=== PATIENT | female | born 1980 | race Caucasian/White ===

== ENCOUNTER 2020-08-14 17:16 | Outpatient (REF) | payer OTHER, SELFPAY ==
[2020-08-14 18:12] LABS: Influenza A PCR NEGATIVE (Negative); Influenza B PCR NEGATIVE (Negative); Resp Syncy Virus RNA Qual PCR NEGATIVE (Negative); SARS COV2 PCR INHOUSE NEGATIVE (Negative)
== END 2020-08-14 17:17 | disposition home or self-care (01) ==
LOC: HO.LNP 17:16
PROVIDERS: Visit Provider Internal Medicine
DX: R50.9 Fever, unspecified (principal); I10 Essential (primary) hypertension
CPT/HCPCS: 0241U

== ENCOUNTER 2020-12-14 07:04 | Outpatient (REF) | payer OTHER, SELFPAY ==
[2020-12-14 08:03] LABS: MANUAL DIFF FLAG NO
[2020-12-14 08:23] LABS: Eosinophils Absolute Auto 0.1 X10*3/uL (0.0-0.4); Eosinophils Percent Auto 2.3 % (0-4); Hematocrit 37.5 % (37-47); Hemoglobin 12.2 g/dl (12.0-16.0); Imm Gran Abs Auto 0.01 X10*3/uL (0.00-0.03); Imm Gran Pct Auto 0.3 % (0.0-0.4); Lymphocytes Absolute Auto 1.4 X10*3/uL (1.2-4.9); Lymphocytes Percent Auto 36.1 % (20-40); Mean Corpuscular HGB Conc 32.5 g/dl (31.0-35.0); Mean Corpuscular Hemoglobin 29.7 pg (27.0-33.0); Mean Corpuscular Volume 91.2 fL (80-98); Mean Platelet Volume 9.5 fL (9.4-12.3); Monocytes Absolute Auto 0.3 X10*3/uL (0.1-1.2); Monocytes Percent Auto 7.6 % (2-11); Neutrophils Absolute Auto 2.1 X10*3/uL (2.0-8.3); Neutrophils Percent Auto 52.7 % (45-73); Platelet Count 228 X10*3/uL (160-400); Red Blood Count 4.11 X10*6/uL (4.20-5.50); Red Cell Distribution Width 11.6 % (11.0-16.0); White Blood Count 3.9 X10*3/uL (4.8-10.8)
[2020-12-14 08:30] LABS: Alanine Aminotransferase 16 U/L (0-31); Albumin Level 4.2 g/dL (3.5-5.0); Alkaline Phosphatase 30 U/L (39-117); Anion Gap 14 (12-20); Aspartate Amino Transferase 17 U/L (5-31); Bilirubin Total 0.9 mg/dL (0.0-1.0); Blood Urea Nitrogen 11 mg/dL (9-16); Calcium 9.2 mg/dL (8.4-10.2); Carbon Dioxide 24 mmol/L (22-29); Chloride 107 mmol/L (96-108); Cholesterol 138 mg/dL; Estimated Glomerular Filt Rate > 60; Glucose Fasting 91 mg/dL (60-99); HDL Cholesterol 54 mg/dL; LDL Cholesterol Calculated 74 mg/dl; Potassium 4.5 mmol/L (3.3-5.1); Sodium 140 mmol/L (135-145); Total Protein 6.4 g/dL (6.5-8.0); Triglycerides 52 mg/dL
[2020-12-14 08:53] LABS: Free T4 (Free Thyroxine) 1.14 ng/dL (0.71-1.85); Thyroid Stimulating Hormone 0.59 uIU/mL (0.32-4.0)
== END 2020-12-14 07:05 | disposition home or self-care (01) ==
LOC: HO.LAB 07:04
PROVIDERS: PCP Internal Medicine; Visit Provider Internal Medicine
DX: Z00.00 Encounter for general adult medical examination without abnormal findings (principal); R00.2 Palpitations
CPT/HCPCS: 36415; 80053; 80061; 84439; 84443; 85025

== ENCOUNTER 2021-04-18 08:06 | Emergency (ER) | payer OTHER, SELFPAY ==
--- NOTE | 2021-04-18 08:50 | ED.ANIMALBIT ---
HPI - Animal Bite General Chief Complaint: Animal Bite Stated Complaint: at exposure Time Seen by Provider: 04/18/21 08:50 Source: patient Mode of arrival: ambulatory Limitations: no limitations History of Present Illness MD complaint: possible animal exposure Onset (ago): day(s) (2 ) Animal: bat Description of animal: wild animal Mechanism: animal present during sleep Context: unprovoked Associated symptoms: none Related Data Allergies Allergy/AdvReac Type Severity Reaction Status Date / Time lactose [LACTOSE] Allergy Unknown GAS Unverified 05/10/20 15:33 Review of Systems Review of Systems: Constitutional : No Fever, No Chills, Cardiovascular : No Chest Pain, No SOB Respiratory : No Dyspnea Gastrointestinal : No abdominal pain Musculoskeletal : No Joint Swelling Skin : No rash, no skin laceration Neuro : No Weakness, No Numbness PMFSH Past Medical History Attestation statement: The following information was validated with the patient. Medical History deliv due to previous difficult deliv, deliv, curr hospitaliz No known health problems Surgical History (Updated 04/18/21 @ 08:17 by Gwyn Perla) Previous section Social History Social History (Updated 04/18/21 @ 09:04 by Autumn Phillips DO) Patient Tobacco Use Status: Current everyday Tobacco user Patient : No Physical Exam Vital Signs: Vital Signs: Last Vital Signs Resp 18 04/18/21 09:00 Pulse Ox 99 04/18/21 09:00 Body Mass Index 24.5 Appearance: Alert. Oriented X3. No acute distress. Eyes: Pupils equal, round and reactive to light. Neck: Normal inspection. Neck supple. CVS: Pulses normal. Respiratory: No respiratory distress. Skin: Skin warm and dry. Normal skin color. Extremities: No lower extremity edema. Neuro: Oriented X 3. No motor deficit. No sensory deficit. MDM - Animal Bite MDM Narrative Medical decision making narrative: possible bat exposure 30 hours ago here for rabies vaccines Discharge Plan Discharge Clinical Impression: Rabies contact Patient Disposition: Home, Self-Care Instructions: Rabies (ED), Rabies Immune Globulin (By injection), Rabies Vaccine (By injection) Additional Instructions: rabies shots on day 0, 3, 7, 14
[2021-04-18 09:00] VITALS: RESP 18; O2SAT 99; BMI 24.5
[2021-04-18 09:10] VITALS: BP 118/70; PULSE 67; RESP 14; TEMP 36.9; O2SAT 98
[2021-04-18] MEDS: Rabies Vaccine (PCEC)/PF 1 ML VIAL IM (09:42)
[2021-04-18] MEDS: Rabies Immune Globulin/PF 300 UNIT/ML VIAL 1294 UNIT IM (09:44)
== END 2021-04-18 10:56 | disposition home or self-care (01) ==
PROVIDERS: Emergency Provider Emergency Medicine; PCP Internal Medicine
DX: Z20.3 Contact with and (suspected) exposure to rabies (principal); F17.210 Nicotine dependence, cigarettes, uncomplicated
CPT/HCPCS: 90375; 90471; 90675; 96372; 99283; 99284

== ENCOUNTER 2021-04-21 10:58 | Outpatient (REF) | payer OTHER, SELFPAY | END 2021-04-21 10:59 | disposition home or self-care (01) | LOC: HO.MDS 10:58 | PROVIDERS: PCP Internal Medicine; Visit Provider Emergency Medicine | DX: Z29.14 Encounter for prophylactic rabies immune globulin (principal); Z20.3 Contact with and (suspected) exposure to rabies | CPT/HCPCS: 90471; 90675 ==

== ENCOUNTER 2021-04-25 14:04 | Outpatient (REF) | payer OTHER, SELFPAY | END 2021-04-25 14:05 | disposition home or self-care (01) | LOC: HO.MDS 14:04 | PROVIDERS: Visit Provider Emergency Medicine | DX: Z29.14 Encounter for prophylactic rabies immune globulin (principal); Z20.3 Contact with and (suspected) exposure to rabies | CPT/HCPCS: 90471; 90675 ==

== ENCOUNTER 2021-05-02 14:05 | Outpatient (REF) | payer OTHER, SELFPAY | END 2021-05-02 14:06 | disposition home or self-care (01) | LOC: HO.MDS 14:05 | PROVIDERS: Visit Provider Emergency Medicine | DX: Z29.14 Encounter for prophylactic rabies immune globulin (principal); Z20.3 Contact with and (suspected) exposure to rabies | CPT/HCPCS: 90471; 90675 ==

== ENCOUNTER 2021-07-17 10:35 | Outpatient (REF) | payer OTHER, SELFPAY ==
[2021-07-17 13:43] LABS: MANUAL DIFF FLAG NO
[2021-07-17 13:55] LABS: Basophils Percent Auto 0.7 % (0-2); Hematocrit 36.7 % (37.0-47.0); Hemoglobin 12.3 g/dl (12.0-16.0); Imm Gran Abs Auto 0.01 X10*3/uL (0.00-0.03); Imm Gran Pct Auto 0.2 % (0.0-0.4); Lymphocytes Absolute Auto 1.4 X10*3/uL (1.2-4.9); Lymphocytes Percent Auto 33.3 % (20-40); Mean Corpuscular HGB Conc 33.5 g/dl (31.0-35.0); Mean Corpuscular Hemoglobin 29.8 pg (27.0-33.0); Mean Corpuscular Volume 88.9 fL (80.0-98.0); Mean Platelet Volume 9.9 fL (9.4-12.3); Monocytes Absolute Auto 0.3 X10*3/uL (0.1-1.2); Monocytes Percent Auto 6.7 % (2-11); Neutrophils Absolute Auto 2.5 x10*3/uL (2.0-8.3); Neutrophils Percent Auto 58.1 % (45-73); Platelet Count 205 X10*3/uL (160-400); Red Blood Count 4.13 X10*6/uL (4.20-5.50); Red Cell Distribution Width 11.6 % (11.0-16.0); White Blood Count 4.2 X10*3/uL (4.8-10.8)
[2021-07-17 14:33] LABS: Anion Gap 11 (12-20); Blood Urea Nitrogen 8 mg/dL (9-16); C Reactive Protein 0.04 mg/dL (< or = 0.50); Calcium 8.9 mg/dL (8.4-10.2); Carbon Dioxide 24 mmol/L (22-29); Chloride 110 mmol/L (96-108); Estimated Glomerular Filt Rate > 60; Glucose Random 73 mg/dL (60-115); Magnesium 2.3 mg/dL (1.6-2.6); Potassium 4.2 mmol/L (3.3-5.1); Sodium 141 mmol/L (135-145)
[2021-07-17 15:05] LABS: Thyroid Stimulating Hormone 0.78 uIU/mL (0.32-4.0); Vitamin D 25-OH Total 31.8 ng/mL (>30)
[2021-07-17 16:02] LABS: Vitamin B12 223 pg/mL (200-900)
== END 2021-07-17 10:36 | disposition home or self-care (01) ==
LOC: HO.10HDL 10:35
PROVIDERS: Visit Provider Internal Medicine
DX: R51.9 Headache, unspecified (principal); M62.40 Contracture of muscle, unspecified site
CPT/HCPCS: 36415; 80048; 82306; 82607; 83735; 84443; 85025; 86140

== ENCOUNTER 2021-08-19 11:54 | Outpatient (REF) | payer OTHER, SELFPAY ==
[2021-08-19 14:19] LABS: Influenza A PCR NEGATIVE (Negative); Influenza B PCR NEGATIVE (Negative); Resp Syncy Virus RNA Qual PCR NEGATIVE (Negative); SARS COV2 PCR INHOUSE NEGATIVE (Negative)
== END 2021-08-19 11:55 | disposition home or self-care (01) ==
LOC: HO.10HDLNP 11:54
PROVIDERS: Visit Provider Internal Medicine
DX: Z20.822 Contact with and (suspected) exposure to COVID-19 (principal)
CPT/HCPCS: 0241U

== ENCOUNTER 2023-01-23 08:03 | Outpatient (REF) | payer OTHER, SELFPAY ==
[2023-01-23 10:49] LABS: MANUAL DIFF FLAG NO
[2023-01-23 11:00] LABS: Basophils Percent Auto 0.7 % (0-2); Eosinophils Absolute Auto 0.1 X10*3/uL (0.0-0.4); Eosinophils Percent Auto 1.5 % (0-4); Hematocrit 35.5 % (37.0-47.0); Hemoglobin 11.6 g/dl (12.0-16.0); Imm Gran Abs Auto 0.01 X10*3/uL (0.00-0.03); Imm Gran Pct Auto 0.2 % (0.0-0.4); Lymphocytes Absolute Auto 1.4 X10*3/uL (1.2-4.9); Lymphocytes Percent Auto 30.6 % (20-40); Mean Corpuscular HGB Conc 32.7 g/dl (31.0-35.0); Mean Corpuscular Hemoglobin 27.5 pg (27.0-33.0); Mean Corpuscular Volume 84.1 fL (80.0-98.0); Mean Platelet Volume 10.2 fL (9.4-12.3); Monocytes Absolute Auto 0.3 X10*3/uL (0.1-1.2); Neutrophils Absolute Auto 2.8 x10*3/uL (2.0-8.3); Platelet Count 192 X10*3/uL (160-400); Red Blood Count 4.22 X10*6/uL (4.20-5.50); Red Cell Distribution Width 13.2 % (11.0-16.0); White Blood Count 4.6 X10*3/uL (4.8-10.8)
[2023-01-23 11:20] LABS: Anion Gap 10 (12-20); Blood Urea Nitrogen 12 mg/dL (9-16); C Reactive Protein < 0.10 mg/dL (< or = 0.50); Calcium 9.6 mg/dL (8.4-10.2); Carbon Dioxide 25 mmol/L (22-29); Chloride 108 mmol/L (96-108); Estimated Glomerular Filt Rate > 60; Glucose Random 87 mg/dL (60-115); Potassium 3.9 mmol/L (3.3-5.1); Sodium 139 mmol/L (135-145)
[2023-01-23 11:40] LABS: Erythrocyte Sedimentation Rate 7 MM/HR (0-20)
[2023-01-23 11:42] LABS: Vitamin B12 275 pg/mL (200-900)
== END 2023-01-23 08:04 | disposition home or self-care (01) ==
LOC: HO.10HDL 08:03
PROVIDERS: Visit Provider Internal Medicine
DX: G43.909 Migraine, unspecified, not intractable, without status migrainosus (principal); J30.1 Allergic rhinitis due to pollen; E53.8 Deficiency of other specified B group vitamins
CPT/HCPCS: 36415; 80048; 82607; 85025; 85652; 86140

== ENCOUNTER 2023-02-19 19:24 | Emergency (ER) | payer OTHER, SELFPAY ==
--- NOTE | ~2023-02-19 | CT_ITS ---
EXAMINATION: CT MAXILLOFACIAL WITHOUT CONTRAST CLINICAL INFORMATION: Facial pain. Dental pain. Sinusitis. COMPARISON: CT head from 06/26/2016. TECHNIQUE: Multidetector helical imaging of the maxillofacial bones was performed in the axial plane without intravenous contrast. Generation of coronal and sagittal reformatted images. This CT examination was performed using dose optimization techniques as appropriate, variously including the following: *Automated exposure control *Adjustment of mA and/or kV according to patient size (this includes techniques or standardized protocols for targeted exams where dose is matched to indication/reason for exam; i.e. extremities or head) *Use of iterative reconstruction technique DLP: 208 mGy-cm FINDINGS: FRONTAL SINUSES AND DRAINAGE PATHWAYS: Minimal mucosal thickening of the frontal sinuses. The frontoethmoidal recesses are patent. MAXILLARY SINUSES AND DRAINAGE PATHWAYS: Minimal mucosal thickening of the maxillary sinuses. The maxillary ostia and infundibula are patent. ETHMOID SINUSES: Mild mucosal thickening of the ethmoid air cells. The ethmoid roofs appear symmetric and intact. SPHENOID SINUS AND DRAINAGE PATHWAYS: The sphenoid sinus is clear. The sphenoethmoidal recesses are patent. The carotid canals are normally covered by bone. NASAL PASSAGE: Moderate mucosal thickening of the nasal passages. Moderate leftward nasal septal deviation. ORBITS: Normal appearance of the osseous orbits. The lamina papyracea are intact. No significant preseptal or retrobulbar edema. Normal appearance of the globes. Normal symmetric appearance of the extraocular musculature. No abnormalities of the intraconal or extraconal adipose tissue. Normal appearance of the optic nerve sheaths. Normal appearance of the lacrimal glands. No orbital fluid collections. No abnormalities of the orbital apices. TEMPOROMANDIBULAR JOINTS: The temporomandibular joints remain well aligned. Mild degenerative arthropathy of the temporomandibular joints. ADDITIONAL RELEVANT FINDINGS: No evidence of maxillofacial bone fractures. The zygomatic arches remain intact. No nasal bone fracture. No evidence of mandibular or maxillary fracture. No significant maxillary/mandibular periapical disease. The visualized mastoid air cells and middle ear cavities remain well aerated. Limited evaluation of the intracranial structures without significant abnormalities. The premaxillary, retromaxillary, pterygopalatine fossa, temporal fossa, and parapharyngeal adipose tissue is maintained. No demonstrated soft tissue abnormalities within the intrinsic tissues of the tongue. CT/CT facial bones wo IV con IMPRESSION: 1. No evidence of acute fracture of the maxillofacial bones. 2. Mild sinonasal mucosal disease. Moderate leftward nasal septal deviation. 3. Mild degenerative arthropathy of the temporomandibular joints. 4. No demonstrated periodontogenic collection.
--- NOTE | ~2023-02-19 | XR_ITS ---
EXAMINATION: XR CHEST CLINICAL INFORMATION: Chest pain. COMPARISON: None available. TECHNIQUE: Frontal view of the chest was obtained. FINDINGS: No significant abnormality is noted involving the heart, lungs, mediastinum, bony thorax or soft tissues. XR/XR chest 1V IMPRESSION: Unremarkable examination.
--- NOTE | 2023-02-19 19:29 | ECG_ITS ---
Test Reason : CHEST PAIN Blood Pressure : / mmHG Vent. Rate : 059 BPM Atrial Rate : 059 BPM P-R Int : 160 ms QRS Dur : 074 ms QT Int : 436 ms P-R-T Axes : 037 079 046 degrees QTc Int : 431 ms Sinus bradycardia Otherwise normal ECG No previous ECGs available Referred By: Anastacio Chaves Electronically Signed By:Bobby Shrestha
[2023-02-19 19:31] VITALS: BP 132/91; PULSE 72; RESP 16; TEMP 36; O2SAT 100; BMI 24.9
--- NOTE | 2023-02-19 19:32 | ED_ITS ---
HPI - General Adult General Chief complaint: Chest Pain Stated complaint: headache,pain radiation from chest to back Time Seen by Provider: 02/19/23 19:58 Source: patient Mode of arrival: ambulatory Limitations: no limitations History of Present Illness HPI narrative: Patient history of migraine headache almost every day today she woke up had more headache more on the left side with slight nausea and slight light sensitivity. No fever no neck pain also last few hours patient noticed some sharp pain on the right side of the chest increases on deep respiration no shortness of breath no leg swelling no history or risk for DVT, no fever no chills patient does complain of facial pain and forehead pain which increases on stooping down slight nasal discharge Related Data Previous Rx's Medication Instructions Recorded [id number]-[id number] 1 cap PO Q6H PRN headache #20 caps 02/19/23 50 mg-300 mg-40 mg capsule (Fioricet) sumatriptan succinate 50 mg tablet 50 mg PO Q2H PRN migraine headache 02/19/23 (Imitrex) #10 tabs Allergies Allergy/AdvReac Type Severity Reaction Status Date / Time lactose [LACTOSE] Allergy Unknown GAS Verified 02/19/23 19:35 Review of Systems Review of Systems: Yes all other systems are reviewed and are negative COUNT INCLUDES THE [facility] Past Medical History Medical History (Updated 02/19/23 @ 22:24 by George Nobles MD) deliv due to previous difficult deliv, deliv, curr hospitaliz Migraine headache Surgical History Previous section Social History Social History Patient Tobacco Use Status: Current everyday Tobacco user Smoked in Last 30 Days: No Use of substances other than those prescribed or required for medical reasons: No Advance Directives: No Advance Directives Information Provided: Yes Patient : No Physical Exam ED Vital Signs: Vital Signs - 24 hr 02/19/23 19:31 02/19/23 20:28 02/19/23 21:48 Temperature 96.8 F 98.1 F Pulse Rate 72 60 54 Respiratory Rate 16 12 15 Blood Pressure 132/91 H 107/65 119/68 Pulse Oximetry 100 99 98 Oxygen Delivery Method Room Air Room Air Room Air BMI result Body Mass Index 24.9 Appearance: Alert. Oriented X3. No acute distress. Eyes: PERRLA, No Nystagmus normal fundus no papilledema ENT: Pharynx normal. Oral Mucosa moist no temporal artery tenderness, facial tenderness over the frontal and maxillary sinus nares are clear no dental pain Neck: Normal inspection. Neck supple. CVS: Normal heart rate and rhythm. Pulses normal. Respiratory: No respiratory distress. Equal air entry bilateral, no wheezi ng/rales/rhonchi Abdomen: Soft and nontender. Bowel sounds are present, no mass palpable, no CVA tenderness Skin: Skin warm and dry. Normal skin color. Normal skin turgor. Extremities: No lower extremity edema. No calf tenderness Neuro: Oriented X 3. No motor deficit. No sensory deficit.No cerebellar signs , cranial nerves II-XII intact Course Course Course Narrative: This is an RME: Additional HPI, ROS, PE not included below will be deferred to primary provider. 42 year old female presents w/ R sided cp that radiates to back worse w/ deep breathing, feels it around her ribs. Also awoke with severe headache w/ vision changes feels like typical, followed by neuro April 02 scheduled to see them. Denies SOB, recent travel, sedentary lifestyle, smoking hx, OCPs, hypercoagulable do. Plan- labs, ekg, trop Medications Administered Discontinued Medications Generic Name Dose Route Start Last Admin Trade Name Freq PRN Reason Stop Dose Admin Sodium Chloride 1,000 mls @ 999 mls/hr 02/19/23 20:10 02/19/23 21:50 Ns IV 02/19/23 21:10 Infused .Q1H1M ONE Infusion Ketorolac Tromethamine 30 mg 02/19/23 21:17 02/19/23 21:23 Ketorolac Tromethamine 30 Mg/Ml Vial IVPUSH 02/19/23 21:18 30 mg ONCE ONE Administration Ondansetron HCl 4 mg 02/19/23 20:10 02/19/23 20:17 Ondansetron Hcl 4 Mg/2 Ml Vial IVPUSH 02/19/23 20:11 4 mg ONCE ONE Administration Sumatriptan Succinate 6 mg 02/19/23 20:10 02/19/23 20:17 Sumatriptan Succinate 6 Mg/0.5 Ml Vial SUBCUT 02/19/23 20:11 6 mg ONCE ONE Administration Medical Decision Making Medical Decision Making [facility] Narrative: Patient clinically with complex migraine with atypical chest pain was given Imitrex with partial response will give Toradol. Labs are stable Unlikely any [employer] pathology D-dimer negative for PE sensitive troponin negative cardiogram without any ischemic changes CT scan of the facial sinuses were negative for any sinus headache Patient feeling much better after medications like to go home discharge patient home on Imitrex and Fioricet Differential Diagnosis Differential Diagnoses: The differential diagnosis associated with the presenta tion includes Complex migraine/sinusitis/pseudotumor cerebral Lab Data [facility] Lab Attestation statement: I reviewed the patient's lab results. 02/19/23 20:01 02/19/23 20:01 Labs: Lab Results 02/19/23 02/19/23 02/19/23 Range/Units 20:01 20:01 20:01 WBC 5.9 (4.8-10.8) X10*3/uL RBC 4.10 L (4.20-5.50) X10*6/uL Hgb 11.8 L (12.0-16.0) g/dl Hct 35.1 L (37.0-47.0) % MCV 85.6 (80.0-98.0) fL MCH 28.8 (27.0-33.0) pg MCHC 33.6 (31.0-35.0) g/dl RDW 14.0 (11.0-16.0) % Plt Count 218 (160-400) X10*3/uL MPV 9.3 L (9.4-12.3) fL Immature Gran % (Auto) 0.3 (0.0-0.4) % Neut % (Auto) 62.6 (45-73) % Lymph % (Auto) 28.9 (20-40) % Graves % (Auto) 5.8 (2-11) % Eos % (Auto) 1.9 (0-4) % Baso % (Auto) 0.5 (0-2) % Lymph # (Auto) 1.7 (1.2-4.9) X10*3/uL Graves # (Auto) 0.3 (0.1-1.2) X10*3/uL Eos # (Auto) 0.1 (0.0-0.4) X10*3/uL Baso # (Auto) 0.0 (0.0-0.2) X10*3/uL Abs Immat Gran (auto) 0.02 (0.00-0.03) X10*3/uL Absolute Neuts (auto) 3.7 (2.0-8.3) x10*3/uL Absolute Nucleated RBC 0.000 (0.0-0.012) X10*3/uL Nucleated RBC % (auto) 0.0 (0.0-0.2) /100WBC D-Dimer High Sensitivty NG/ML Sodium 141 (135-145) mmol/L Potassium 3.7 (3.3-5.1) mmol/L Chloride 107 (96-108) mmol/L Carbon Dioxide 24 (22-29) mmol/L Anion Gap 14 (12-20) BUN 10 (9-16) mg/dL Creatinine 0.63 (0.5-1.4) mg/dL Estim Creat Clear Calc 110.8 Estimated GFR > 60 Random Glucose 93 (60-115) mg/dL Calcium 9.9 (8.4-10.2) mg/dL Magnesium 2.2 (1.6-2.6) mg/dL Total Bilirubin 0.5 (0.0-1.0) mg/dL AST 23 (5-31) U/L ALT 19 (0-31) U/L Alkaline Phosphatase 37 L (39-117) U/L Troponin I High Sens < 2.7 (<3.5-17.0) ng/L Total Protein 7.3 (6.5-8.0) g/dL Albumin 4.5 (3.5-5.0) g/dL COVID-19 ([facility]) (Negative) COVID-19 Clin Com 02/19/23 02/19/23 Range/Units 20:01 20:01 WBC (4.8-10.8) X10*3/uL RBC (4.20-5.50) X10*6/uL Hgb (12.0-16.0) g/dl Hct (37.0-47.0) % MCV (80.0-98.0) fL MCH (27.0-33.0) pg MCHC (31.0-35.0) g/dl RDW (11.0-16.0) % Plt Count (160-400) X10*3/uL MPV (9.4-12.3) fL Immature Gran % (Auto) (0.0-0.4) % Neut % (Auto) (45-73) % Lymph % (Auto) (20-40) % Graves % (Auto) (2-11) % Eos % (Auto) (0-4) % Baso % (Auto) (0-2) % Lymph # (Auto) (1.2-4.9) X10*3/uL Graves # (Auto) (0.1-1.2) X10*3/uL Eos # (Auto) (0.0-0.4) X10*3/uL Baso # (Auto) (0.0-0.2) X10*3/uL Abs Immat Gran (auto) (0.00-0.03) X10*3/uL Absolute Neuts (auto) (2.0-8.3) x10*3/uL Absolute Nucleated RBC (0.0-0.012) X10*3/uL Nucleated RBC % (auto) (0.0-0.2) /100WBC D-Dimer High Sensitivty < 150 NG/ML Sodium (135-145) mmol/L Potassium (3.3-5.1) mmol/L Chloride (96-108) mmol/L Carbon Dioxide (22-29) mmol/L Anion Gap (12-20) BUN (9-16) mg/dL Creatinine (0.5-1.4) mg/dL Estim Creat Clear Calc Estimated GFR Random Glucose (60-115) mg/dL Calcium (8.4-10.2) mg/dL Magnesium (1.6-2.6) mg/dL Total Bilirubin (0.0-1.0) mg/dL AST (5-31) U/L ALT (0-31) U/L Alkaline Phosphatase (39-117) U/L Troponin I High Sens (<3.5-17.0) ng/L Total Protein (6.5-8.0) g/dL Albumin (3.5-5.0) g/dL COVID-19 ([facility]) Negative (Negative) COVID-19 Clin Com See Note Independent Interpretation I performed an independent interpretation of an: EKG Interpretation: Sinus bradycardia heart rate 59 beats per minute normal interval normal axis no acute ST changes no acute ischemia Discharge Plan Discharge Clinical Impression: Migraine headache Patient Disposition: Home, Self-Care Instructions: Migraine Headache (ED) Additional Instructions: Take medication as prescribed and follow-up with PCP Imitrex 1 tablet at onset of headache may repeat in 2 hours if headache continues maximum 2 tablets in 24 hours If headache continues take Fioricet 1 tablet every 6 hours as needed Follow with neurologist/PCP Prescriptions: New sumatriptan succinate [Imitrex] 50 mg tablet 50 mg PO Q2H PRN (Reason: migraine headache) Qty: 10 0RF Rx Instructions: do not exceed 2 doses per 24 hrs [id number]-yvhizmdwkjtvq-[id number] [Fioricet] 50-300-40 mg capsule 1 cap PO Q6H PRN (Reason: headache) Qty: 20 0RF
[2023-02-19 20:09] LABS: MANUAL DIFF FLAG NO
[2023-02-19 20:12] LABS: Basophils Percent Auto 0.5 % (0-2); Eosinophils Absolute Auto 0.1 X10*3/uL (0.0-0.4); Eosinophils Percent Auto 1.9 % (0-4); Hematocrit 35.1 % (37.0-47.0); Hemoglobin 11.8 g/dl (12.0-16.0); Imm Gran Abs Auto 0.02 X10*3/uL (0.00-0.03); Imm Gran Pct Auto 0.3 % (0.0-0.4); Lymphocytes Absolute Auto 1.7 X10*3/uL (1.2-4.9); Lymphocytes Percent Auto 28.9 % (20-40); Mean Corpuscular HGB Conc 33.6 g/dl (31.0-35.0); Mean Corpuscular Hemoglobin 28.8 pg (27.0-33.0); Mean Corpuscular Volume 85.6 fL (80.0-98.0); Mean Platelet Volume 9.3 fL (9.4-12.3); Monocytes Absolute Auto 0.3 X10*3/uL (0.1-1.2); Monocytes Percent Auto 5.8 % (2-11); Neutrophils Absolute Auto 3.7 x10*3/uL (2.0-8.3); Neutrophils Percent Auto 62.6 % (45-73); Platelet Count 218 X10*3/uL (160-400); White Blood Count 5.9 X10*3/uL (4.8-10.8)
[2023-02-19] MEDS: 0.9 % Sodium Chloride 1,000 ML 999 ML IV (20:17)
[2023-02-19] MEDS: SUMAtriptan succinate 6 MG/0.5 ML VIAL SUBCUT (20:17)
[2023-02-19] MEDS: ondansetron HCL 4 MG/2 ML VIAL IVPUSH (20:17)
[2023-02-19 20:26] LABS: Alanine Aminotransferase 19 U/L (0-31); Albumin Level 4.5 g/dL (3.5-5.0); Alkaline Phosphatase 37 U/L (39-117); Anion Gap 14 (12-20); Aspartate Amino Transferase 23 U/L (5-31); Bilirubin Total 0.5 mg/dL (0.0-1.0); Blood Urea Nitrogen 10 mg/dL (9-16); COVID-19 Test Negative (Negative); Calcium 9.9 mg/dL (8.4-10.2); Carbon Dioxide 24 mmol/L (22-29); Chloride 107 mmol/L (96-108); Creatinine Clr Calc Pharmacy 110.8; Estimated Glomerular Filt Rate > 60; Glucose Random 93 mg/dL (60-115); IDNOW Serial# BCCEAD1C; Magnesium 2.2 mg/dL (1.6-2.6); Potassium 3.7 mmol/L (3.3-5.1); Sodium 141 mmol/L (135-145); Total Protein 7.3 g/dL (6.5-8.0)
[2023-02-19 20:28] VITALS: BP 107/65; PULSE 60; RESP 12; O2SAT 99
[2023-02-19 20:28] LABS: D Dimer High Sensitivity < 150 NG/ML
[2023-02-19 20:36] LABS: Troponin-I High Sensitivity < 2.7 ng/L (<3.5-17.0)
[2023-02-19] MEDS: Ketorolac Tromethamine 30 MG/ML VIAL IVPUSH (21:23)
[2023-02-19 21:48] VITALS: BP 119/68; PULSE 54; RESP 15; TEMP 36.7; O2SAT 98
== END 2023-02-19 22:57 | disposition home or self-care (01) ==
PROVIDERS: Physician Assistant; Emergency Provider Internal Medicine; PCP Internal Medicine
DX: G43.909 Migraine, unspecified, not intractable, without status migrainosus (principal); R07.89 Other chest pain; M54.50 Low back pain, unspecified; Z20.822 Contact with and (suspected) exposure to COVID-19; Z20.828 Contact with and (suspected) exposure to other viral communicable diseases; Z79.899 Other long term (current) drug therapy
CPT/HCPCS: 36415; 70486; 71045; 80053; 83735; 84484; 85025; 85379; 87635; 93005; 96361; 96372; 96374; 96375; 99284; 99285; J1885; J2405; J3030

== ENCOUNTER 2023-08-27 13:44 | Outpatient (REF) | payer OTHER, SELFPAY | END 2023-08-27 13:45 | disposition home or self-care (01) | LOC: HO.LNP 13:44 | PROVIDERS: Visit Provider Internal Medicine | DX: Z11.52 Encounter for screening for COVID-19 (principal); Z20.822 Contact with and (suspected) exposure to COVID-19; R05.9 Cough, unspecified; R51.9 Headache, unspecified; R53.83 Other fatigue | CPT/HCPCS: 0241U ==

== ENCOUNTER 2024-01-06 09:29 | Emergency (ER) | payer OTHER, SELFPAY ==
--- NOTE | ~2024-01-06 | CT_ITS ---
EXAMINATION: CT HEAD WITHOUT CONTRAST CLINICAL INFORMATION: Blurring of vision COMPARISON: CT scan of brain on 06/26/2016 TECHNIQUE: Contiguous axial imaging was performed from the skull base to vertex without intravenous administration of contrast. This CT examination was performed using dose optimization techniques as appropriate, variously including the following: *Automated exposure control *Adjustment of mA and/or kV according to patient size (this includes techniques or standardized protocols for targeted exams where dose is matched to indication/reason for exam; i.e. extremities or head) *Use of iterative reconstruction technique DLP: 631.35 mGy-cm FINDINGS: Ventricles, sulci and cisterns are normal. There is no midline shift, no abnormal intra- or extra- axial fluid accumulation. Dent and white matter differentiation is normal. Bone window images show no evidence of skull fracture. CT/CT head/brain wo IV con IMPRESSION: 1. Unchanged Normal CT scan of the brain. 2. No intracranial hemorrhage or skull fracture is seen. 3. No evidence of space occupying lesion could be found. 4. The current plain CT scan of the brain shows no diagnostic evidence of acute cerebral infarction.
[2024-01-06 09:44] VITALS: BP 146/89; PULSE 74; RESP 16; TEMP 36.9; O2SAT 98; BMI 25.9
--- NOTE | 2024-01-06 09:47 | ECG_ITS ---
Test Reason : anxiety Blood Pressure : / mmHG Vent. Rate : 068 BPM Atrial Rate : 068 BPM P-R Int : 140 ms QRS Dur : 074 ms QT Int : 412 ms P-R-T Axes : 011 -04 027 degrees QTc Int : 438 ms Normal sinus rhythm Normal ECG When compared with ECG of 19-FEB-2023 20:14, Questionable change in QRS axis Referred By: Generic ED Physician Electronically Signed By:KIRAN COX MD
[2024-01-06 10:03] LABS: MANUAL DIFF FLAG NO
[2024-01-06 10:08] LABS: Basophils Percent Auto 0.5 % (0-2); Eosinophils Absolute Auto 0.1 X10*3/uL (0.0-0.4); Eosinophils Percent Auto 1.9 % (0-4); Hematocrit 37.6 % (37.0-47.0); Hemoglobin 13.1 g/dl (12.0-16.0); Imm Gran Abs Auto 0.01 X10*3/uL (0.00-0.03); Imm Gran Pct Auto 0.3 % (0.0-0.4); Lymphocytes Percent Auto 28.6 % (20-40); Mean Corpuscular HGB Conc 34.8 g/dl (31.0-35.0); Mean Corpuscular Hemoglobin 30.7 pg (27.0-33.0); Mean Corpuscular Volume 88.1 fL (80.0-98.0); Mean Platelet Volume 9.2 fL (9.4-12.3); Monocytes Absolute Auto 0.3 X10*3/uL (0.1-1.2); Neutrophils Absolute Auto 2.2 x10*3/uL (2.0-8.3); Neutrophils Percent Auto 60.7 % (45-73); Platelet Count 171 X10*3/uL (160-400); Red Blood Count 4.27 X10*6/uL (4.20-5.50); Red Cell Distribution Width 11.9 % (11.0-16.0); White Blood Count 3.6 X10*3/uL (4.8-10.8)
[2024-01-06 10:18] LABS: Anion Gap 12 (12-20); Blood Urea Nitrogen 12 mg/dL (9-16); Calcium 9.6 mg/dL (8.4-10.2); Carbon Dioxide 26 mmol/L (22-29); Chloride 109 mmol/L (96-108); Creatinine Clr Calc Pharmacy 97.7; Estimated Glomerular Filt Rate > 60; Glucose Random 92 mg/dL (60-115); Potassium 4.2 mmol/L (3.3-5.1); Sodium 143 mmol/L (135-145)
--- NOTE | 2024-01-06 12:05 | ED.GENADULT ---
HPI - General Adult General Chief complaint: Anxiety Stated complaint: Heart racing, blurred vision Time Seen by Provider: 01/06/24 12:05 Source: patient Mode of arrival: ambulatory Limitations: no limitations History of Present Illness HPI narrative: Patient is a 43 year old assigned female at with a history of migraines presenting to the emergency department today with blurry vision, migraine, and palpitations. Patient states that she was driving her children to school when she began to have a headache, blurry vision, and palpitations. Patient states that she got clammy as well. Patient states that the blurry vision has now resolved but she is still having occasional palpitations and continues to have a headache. Patient states that she does follow with Dr. Watson, the neurologist, who has prescribed sumatriptan for migraines. Patient states that over the last 6 days she has had 3 migraines which is much more frequent than she usually has. Patient states that her grandmother had MS. Patient denies any current dizziness, lightheadedness, abdominal pain, nausea, vomiting, fever, chills, blurry vision, double vision, loss of vision, chest pain, difficulty breathing, shortness of breath, back pain, night sweats, pain with urination, increased urinary frequency, increased urinary urgency, blood in her urine or stool, syncope or a near syncopal episode, recent trauma or falls, bowel incontinence, bladder incontinence, bowel retention, bladder retention, or any other complaints at this time. Onset (ago): minute(s) Radiation: non-radiation Severity: mild Severity scale (1-10): 4 Quality: aching Pain Consistency: constant Relieving factors: none Exacerbating factors: none Associated symptoms: denies other symptoms Treatments prior to arrival: none Related Data Previous Rx's ?Medication ?Instructions ?Recorded [id number] 1 cap PO Q6H PRN headache #20 caps 02/19/23 50 mg-300 mg-40 mg capsule (Fioricet) sumatriptan succinate 50 mg tablet 50 mg PO Q2H PRN migraine headache 02/19/23 (Imitrex) #10 tabs Allergies Allergy/AdvReac Type Severity Reaction Status Date / Time lactose [LACTOSE] Allergy Unknown GAS Verified 01/06/24 09:46 Review of Systems Constitutional: Constitutional: Reports no additional constitutional complaints, Denies chills, Denies fever(s), Reports headache(s) and Denies night sweats Eyes: Eyes: Reports no additional eye complaints, Reports blurry vision (now resolved), Denies change in vision, Denies diplopia, Denies eye discharge, Denies loss of vision and Denies eye pain ENT: Denies dizziness and Reports headache(s) Cardiovascular: Cardiovascular: Reports no additional cardiovascular complaints, Denies chest pain, Denies lightheadedness, Denies Loss of Consciousness, Reports palpitations and Denies dyspnea Respiratory: Respiratory: Reports no additional respiratory complaints and Denies dyspnea Gastrointestinal: Gastrointestinal: Reports no additional gastrointestinal complaints, Denies abdominal pain, Denies melena, Denies hematochezia, Denies change in bowel habits and Denies change in stool character Genitourinary: Genitourinary: Denies hematuria, Denies urinary frequency, Denies dysuria, Denies urinary incontinence, Denies urinary hesitancy and Denies urinary urgency Musculoskeletal: Musculoskeletal: Reports no additional musculoskeletal complaints, Denies numbness and Denies tingling Neurologic: Denies dizziness, Reports headache(s), Denies loss of vision, Denies numbness and Denies tingling Psychiatric: Psychiatric: Reports no additional psychiatric complaints Endocrine: Endocrine: Reports no additional endocrine complaints and Reports palpitations Hematologic/Lymphatic: Hematologic/Lymphatic: Reports no additional hematologic/lymphatic complaints Allergic/Immunologic: Allergic/Immunologic: Reports no additional allergic/immunologic complaints [facility] Past Medical History Attestation statement: The following information was validated with the patient. Source: old records reviewed and nursing notes reviewed Medical History Migraine headache deliv due to previous difficult deliv, deliv, curr hospitaliz Surgical History Previous section Social History Social History Patient Tobacco Use Status: Current everyday Tobacco user Advance Directives: No Advance Directives Information Provided: No Physical Exam ED Vital Signs: Vital Signs - 24 hr 01/06/24 09:44 01/06/24 12:20 01/06/24 14:00 Temperature 98.4 F 98.2 F 98.3 F Pulse Rate 74 61 65 Respiratory Rate 16 Blood Pressure 146/89 H 114/75 105/66 Pulse Oximetry 98 98 99 Oxygen Delivery Method Room Air Room Air Room Air 01/06/24 15:21 Temperature 98.3 F Pulse Rate 65 Respiratory Rate 16 Blood Pressure 105/66 Pulse Oximetry 99 Oxygen Delivery Method Room Air BMI result Body Mass Index 25.9 Const General: cooperative, no acute distress, alert and awake Nutritional Appearance: well nourished Orientation/consciousness: patient oriented x3 Limitations: no limitations HENMT Head: Yes normal to inspection and Yes atraumatic Ears: hearing grossly normal bilaterally and external ears normal General nose exam: Normal external nose present, no nasal discharge noted and no epistaxis Face and sinus: Yes normal facial exam, No abrasion and No laceration Mouth: Normal oral and palatal mucosa present, no drooling and no muffled voice Eyes General: appearance normal, both eyes and all related structures Periorbital: periorbital findings normal Eyelids: Yes eyelids normal Conjunctivae: conjunctivae normal Pupils: Equal, round and reactive pupils present EOM: EOMs intact bilaterally Neck Neck: Yes normal visual inspection, Yes full ROM and Yes no lymphadenopathy Chest Chest palpation & inspection: normal inspection of the chest Resp Effort & Inspection: normal respiratory effort and able to speak in complete sentences GI Inspection: Yes normal to inspection Neuro General: patient oriented x3 and moves all extremities Cranial nerves: Yes Equal, round and reactive pupils present Cognition (Neuro): normal cognition Motor exam (neuro): 5/5 motor strength present throughout Sensory Exam: Normal double simultaneous stimulation for sensation Coordination: lmsxrr-[id number]-dwyt test normal Extrem General: Yes normal to inspection, Yes full ROM and Yes capillary refill normal Psych Appearance: grossly normal Mental Status: mental status grossly normal Affect: normal affect Attitude: cooperative Thought process: Normal thought process present Thought content: Normal thought content present Insight: Good insight present (Psych) NIH Stroke Scale Internal: Initial- Upon Arrival Time: 12:05 Level of Consciousness: Alert Level of Consciousness Questions: Answers both questions correctly Level of Consciousness Commands: Performs both tasks correctly Best Gaze: Normal Visual: No visual loss Facial Palsy: Normal Motor Arm (Right): No drift Motor Arm (Left): No drift Motor Leg (Right): No drift Motor Leg (Left): No drift Limb Ataxia: Absent Sensory: Normal Best Language: No aphasia Dysarthia: Normal Extinction and Inattention: No abnormality Score: 0 Medical Decision Making Medical Decision Making MDM Narrative: Patient is a 43 year old assigned female at with a history of migraines presenting to the emergency department today with a headache, now resolved blurry vision, and palpitations. Patient's physical exam was unremarkable. Patient's blood work was unremarkable. Patient's EKG was unremarkable. Patient's head CT showed no acute process. I explained my physical exam findings as well as all test results to the patient. I answered all questions asked by the patient. Patient's clinical presentation is most consistent with an ocular migraine however, given the increase in migraine frequency and family history of MS, I recommended the patient follow up with her neurologist. I stressed the importance of the patient taking her medication as prescribed. I stressed the importance of the patient following up with her primary care provider and her neurologist. I stressed the importance of the patient returning to the emergency department immediately if her symptoms were to worsen or if she were to develop any dizziness, shortness of breath, difficulty breathing, chest pain, blurry vision, loss of vision, nausea, vomiting, abdominal pain, fever, chills, back pain, or any other complaints. Patient verbalized agreement and understanding with this treatment plan and discharge. Differential Diagnosis Differential Diagnoses: The differential diagnosis associated with the presentation includes Migraine Ocular migraine Headache Blurry vision Anxiety Palpitations Admission/Observation Consideration of admission/observation: Escalation of care including admission/observation considered Patient would have been admitted to the hospital had her work up had any findings where hospital admission was appropriate and her clinical presentation warranted hospital admission. Lab Data MDM Lab Attestation statement: I reviewed the patient's lab results. My interpretation of these studies and their corresponding values is that they are grossly normal. 01/06/24 09:59 01/06/24 09:59 Labs: Lab Results 01/06/24 Range/Units 09:59 WBC 3.6 L (4.8-10.8) X10*3/uL RBC 4.27 (4.20-5.50) X10*6/uL Hgb 13.1 (12.0-16.0) g/dl Hct 37.6 (37.0-47.0) % MCV 88.1 (80.0-98.0) fL MCH 30.7 (27.0-33.0) pg MCHC 34.8 (31.0-35.0) g/dl RDW 11.9 (11.0-16.0) % Plt Count 171 (160-400) X10*3/uL MPV 9.2 L (9.4-12.3) fL Immature Gran % (Auto) 0.3 (0.0-0.4) % Neut % (Auto) 60.7 (45-73) % Lymph % (Auto) 28.6 (20-40) % [place] % (Auto) 8.0 (2-11) % Eos % (Auto) 1.9 (0-4) % Baso % (Auto) 0.5 (0-2) % Lymph # (Auto) 1.0 L (1.2-4.9) X10*3/uL [place] # (Auto) 0.3 (0.1-1.2) X10*3/uL Eos # (Auto) 0.1 (0.0-0.4) X10*3/uL Baso # (Auto) 0.0 (0.0-0.2) X10*3/uL Abs Immat Gran (auto) 0.01 (0.00-0.03) X10*3/uL Absolute Neuts (auto) 2.2 (2.0-8.3) x10*3/uL Absolute Nucleated RBC 0.000 (0.0-0.012) X10*3/uL Nucleated RBC % (auto) 0.0 (0.0-0.2) /100WBC Sodium 143 (135-145) mmol/L Potassium 4.2 (3.3-5.1) mmol/L Chloride 109 H (96-108) mmol/L Carbon Dioxide 26 (22-29) mmol/L Anion Gap 12 (12-20) BUN 12 (9-16) mg/dL Creatinine 0.72 (0.5-1.4) mg/dL Estim Creat Clear Calc 97.7 Estimated GFR > 60 Random Glucose 92 (60-115) mg/dL Calcium 9.6 (8.4-10.2) mg/dL Magnesium 2.2 (1.6-2.6) mg/dL Total Bilirubin 0.6 (0.0-1.0) mg/dL Direct Bilirubin 0.2 (0.0-0.5) mg/dL AST 18 (5-31) U/L ALT 13 (0-31) U/L Alkaline Phosphatase 27 L (39-117) U/L Troponin I High Sens < 2.7 (<3.5-17.0) ng/L Total Protein 6.9 (6.5-8.0) g/dL Albumin 4.5 (3.5-5.0) g/dL TSH 0.72 (0.32-4.0) uIU/mL Beta HCG, Quant < 2 mIU/mL Independent Interpretation I performed an independent interpretation of an: EKG and CT Scan Interpretation: My interpretation is in agreement with the radiologist's impression of this imaging study. EXAMINATION: CT HEAD WITHOUT CONTRAST CLINICAL INFORMATION: Blurring of vision COMPARISON: CT scan of brain on 06/26/2016 TECHNIQUE: Contiguous axial imaging was performed from the skull base to vertex without intravenous administration of contrast. This CT examination was performed using dose optimization techniques as appropriate, variously including the following: *Automated exposure control *Adjustment of mA and/or kV according to patient size (this includes techniques or standardized protocols for targeted exams where dose is matched to indication/reason for exam; i.e. extremities or head) *Use of iterative reconstruction technique DLP: 631.35 mGy-cm FINDINGS: Ventricles, sulci and cisterns are normal. There is no midline shift, no abnormal intra- or extra- axial fluid accumulation. Dent and white matter differentiation is normal. Bone window images show no evidence of skull fracture. CT/CT head/brain wo IV con IMPRESSION: 1. Unchanged Normal CT scan of the brain. 2. No intracranial hemorrhage or skull fracture is seen. 3. No evidence of space occupying lesion could be found. 4. The current plain CT scan of the brain shows no diagnostic evidence of acute cerebral infarction. Dictated By: Bao Restrepo Signed By: Electronically signed by Bao Restrepo 01/06/24 1438 Vent. Rate: 068 BPM Atrial Rate: 068 BPM P-R Int: 140 ms QRS Dur: 074 ms QT Int: 412 ms P-R-T Axes: 011 -04 027 degrees QTc Int: 438 ms Normal sinus rhythm Normal ECG When compared with ECG of 19-FEB-2023 20:14, Questionable change in QRS axis DD/ [id number] Radiology Impression Discussion of test interpretation with radiology: I have reviewed the radiologist's reading. Critical Care Time Critical Care Time Critical Care Time: Yes Total Critical Care Time: 42 Attestation: I spent 42 minutes of Critical Care Time with this patient. This does not include time spent on separately reported billable procedures. Discharge Plan Discharge Clinical Impression: Migraine Patient Disposition: Home, Self-Care Instructions: Migraine Headache (ED) Additional Instructions: Follow up with your primary care provider and your neurologist. Return to the emergency department immediately if your symptoms worsen or if you develop any dizziness, shortness of breath, difficulty breathing, chest pain, blurry vision, loss of vision, nausea, vomiting, abdominal pain, fever, chills, back pain, or any other complaints. Prescriptions: No Action sumatriptan succinate [Imitrex] 50 mg tablet 50 mg PO Q2H PRN (Reason: migraine headache) Qty: 10 0RF Rx Instructions: do not exceed 2 doses per 24 hrs [id number] [Fioricet] 50-300-40 mg capsule 1 cap PO Q6H PRN (Reason: headache) Qty: 20 0RF Referrals: Rodri Sepulveda MD [Primary Care Provider] - Interventions: ED Discharge Assessment Last Done: 01/06/24 15:21 Discharge Date/Time: 01/06/24 15:22 Print Language: Martiniquais
[2024-01-06 12:20] VITALS: BP 114/75; PULSE 61; TEMP 36.8; O2SAT 98
[2024-01-06 12:42] LABS: Troponin-I High Sensitivity < 2.7 ng/L (<3.5-17.0)
[2024-01-06 12:48] LABS: Alanine Aminotransferase 13 U/L (0-31); Albumin Level 4.5 g/dL (3.5-5.0); Alkaline Phosphatase 27 U/L (39-117); Aspartate Amino Transferase 18 U/L (5-31); Bilirubin Direct 0.2 mg/dL (0.0-0.5); Bilirubin Total 0.6 mg/dL (0.0-1.0); Magnesium 2.2 mg/dL (1.6-2.6); Total Protein 6.9 g/dL (6.5-8.0)
[2024-01-06 13:04] LABS: HCG Quantitative < 2 mIU/mL; TSH reflex Free T4 0.72 uIU/mL (0.32-4.0)
[2024-01-06 14:00] VITALS: BP 105/66; PULSE 65; TEMP 36.8; O2SAT 99
[2024-01-06 15:21] VITALS: BP 105/66; PULSE 65; RESP 16; TEMP 36.8; O2SAT 99
== END 2024-01-06 15:22 | disposition home or self-care (01) ==
PROVIDERS: Physician Assistant Medical; Emergency Provider Emergency Medicine; PCP Internal Medicine
DX: G43.909 Migraine, unspecified, not intractable, without status migrainosus (principal); H53.8 Other visual disturbances; R00.2 Palpitations
CPT/HCPCS: 36415; 70450; 80048; 80076; 83735; 84443; 84484; 84702; 85025; 93005; 99284

== ENCOUNTER → 2024-01-06 09:47 | Outpatient (BNV) | payer OTHER, SELFPAY | PROVIDERS: Emergency Provider Emergency Medicine; PCP Internal Medicine; Visit Provider Internal Medicine Cardiovascular Disease | DX: F41.9 Anxiety disorder, unspecified (principal) | CPT/HCPCS: 93010 ==

== ENCOUNTER 2025-02-20 10:21 | Outpatient (REF) | payer SELFPAY ==
[2025-02-20 13:48] LABS: Alanine Aminotransferase 15 U/L (0-31); Albumin Level 4.8 g/dL (3.5-5.0); Alkaline Phosphatase 31 U/L (39-117); Anion Gap 13 (12-20); Aspartate Amino Transferase 24 U/L (5-31); Bilirubin Direct 0.2 mg/dL (0.0-0.5); Bilirubin Total 0.6 mg/dL (0.0-1.0); Blood Urea Nitrogen 11 mg/dL (9-16); Calcium 9.6 mg/dL (8.4-10.2); Carbon Dioxide 23 mmol/L (22-29); Chloride 107 mmol/L (96-108); Cholesterol 140 mg/dL (<200); Estimated Glomerular Filt Rate > 60; Glucose Random 93 mg/dL (60-115); HDL Cholesterol 63 mg/dL (>40); LDL Cholesterol Calculated 65 mg/dL (<100); Potassium 3.9 mmol/L (3.3-5.1); Sodium 139 mmol/L (135-145); Total Protein 7.3 g/dL (6.5-8.0); Triglycerides 64 mg/dL (<150)
[2025-02-20 14:19] LABS: Erythrocyte Sedimentation Rate 7 MM/HR (0-20)
[2025-02-20 14:21] LABS: Thyroid Stimulating Hormone 1.04 uIU/mL (0.32-4.0)
== END 2025-02-20 10:22 | disposition home or self-care (01) ==
LOC: HO.10HDL 10:21
PROVIDERS: PCP Internal Medicine; Visit Provider Internal Medicine
DX: G43.909 Migraine, unspecified, not intractable, without status migrainosus (principal)
CPT/HCPCS: 36415; 80048; 80061; 80076; 84443; 85652

== ENCOUNTER 2025-02-20 10:21 | Outpatient (AMB) | payer OTHER, SELFPAY ==
--- NOTE | 2025-02-20 09:34 | A.OFFPC_ITS ---
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 Required: No Accompanied by: Self / Same As Patient Allergies lactose (LACTOSE) Allergy (Unknown, Verified 02/20/25 09:35) GAS Tobacco use date assessed: 02/20/25 Dental Screening Dental Screen Date: 02/20/25 Did you have a dental visit in the last 12 months?: Yes Did you have a dental problem in the last 6 months where you did not have access to dental care?: No [facility] Medical History (Updated 02/20/25 @ 11:20 by Chris High MD) Migraine headache deliv due to previous difficult deliv, deliv, curr hospitaliz Surgical History Previous section Family History (Updated 02/20/25 @ 10:56 by Aliza Ladd MA) Mother No problems noted. Father No problems noted. Social History Housing: House Patient Tobacco Use Status: Never used Tobacco e-Cigarette/Vaping Use: Never Used service: No Current occupational status: employed Cognitive needs: No Hearing needs: No Vision needs: Yes (rx glasses) Questionnaire PHQ-9 Over the last 2 weeks, how often have you been bothered by any of the following problems? 1. Little interest or pleasure in doing things: not at all 2. Feeling down, depressed, or hopeless: not at all 3. Trouble falling or staying asleep, or sleeping too much: not at all 4. Feeling tired or having little energy: not at all 5. Poor appetite or overeating: not at all 6. Feeling bad about yourself - or that you are a failure or have let yourself or your family down: not at all 7. Trouble concentrating on things, such as reading the newspaper or watching television: not at all 8. Moving or speaking so slowly that other people could have noticed. Or the opposite - being so fidgety or restless that you have been moving around a lot more than usual: not at all 9. Thoughts that you would be better off or of hurting yourself in some way: not at all Total score: 0 Source: Developed by Drs. Taye Ghotra, Apoorva Tesfaye, Diego Hill and colleagues, with an educational ervin from [employer]. Thrive Questionnaire Date Thrive assessed: 02/20/25 I am a: Patient Within the past 12 months, did the food you bought not last and you didn't have the money to get more?: Never true Within the past 12 months, did you worry whether your food would run out before you got money to buy more?: Never true Do you have trouble paying for medicines?: No Do you have trouble getting transportation to medical appointments?: No Do you have trouble paying your heating and electricity bill?: No Do you have trouble taking care of your child, family member or friend?: No Do you have trouble with day-to-day activities such as bathing, preparing meals, shopping, managing finances, etc.?: No Are you currently unemployed and looking for a job?: No Are you interested in more education?: No THRIVE Score: 0 AUDIT C Alcohol Use Questionnaire (AUDIT-C) 1. How often do you have a drink containing alcohol?: Monthly or less 2. How many drinks containing alcohol do you have on a typical day when you are drinking?: 1 or 2 3. How often do you have six or more drinks on one occasion?: Less than monthly Total Score: 2 CHINA-7 AMB Questionnaire CHINA-7 Date CHINA - 7 assessed: 02/20/25 Feeling nervous, anxious, or on edge: 0 = Not at all Not being able to stop or control worryin = Not at all Worrying too much about different things: 0 = Not at all Trouble relaxin = Not at all Being so restless that it is hard to sit still: 0 = Not at all Becoming easily annoyed or irritable: 0 = Not at all Feeling afraid as if something awful might happen: 0 = Not at all Total CHINA-7 score (0-4 normal; 5-9 mild; 10-14 moderate; 15-21 severe): 0 Source: Developed by Apoorva Arana.W. Brien, Deigo Hill and colleagues, with an educational ervin from [employer]. Physical exam (Primary Care) Vital Signs: Last Vital Signs Temp 98.4 F 02/20/25 10:52 Pulse 67 02/20/25 10:52 BP 122/70 02/20/25 10:52 Pulse Ox 99 02/20/25 10:52 Oxygen Delivery Method Room Air 02/20/25 10:52 BMI result Body Mass Index 25.6 Tobacco/Smoking Status: Tobacco use Status Tobacco use date assessed 02/20/25 02/20/25 09:37 Patient Tobacco Use Status Never used Tobacco 02/20/25 10:56 e-Cigarette/Vaping Use Never Used 02/20/25 10:56 PHQ-9: PHQ-9 Score PHQ-9: Total score 0 02/20/25 10:56 Thrive Assessment: Date of Thrive Assessment Date Thrive assessed 02/20/25 02/20/25 09:38 Coding Level of Care Code New Pt Level 4 (47017) Complex EM visit Add On G2211 Diagnoses Migraine headache G43.909 Assessment & Plan Assessment & Plan (1) Migraine headache: Code(s): G43.909 - Migraine, unspecified, not intractable, without status migrainosus Category: Medical Plan: History of Present Illness - The patient is a 44-year-old female presenting with chronic headaches and for an annual wellness visit. - Chronic headaches have been present for years, described as daily headaches located in the jaw and face. - The patient has consulted a neurologist and was on various medications for eight months without relief. - Current management includes Gege and Flonase, with no relief from ibuprofen or acetaminophen. - Temporomandibular joint disorder is suspected, with plans for jaw surgery in [place] after orthodontic preparation. - The patient reports wearing a mouthguard to prevent nocturnal clenching and grinding. - Ocular migraines began during , characterized by visual disturbances, but have improved with vitamin B2 and magnesium supplementation. - Preventative care includes annual mammograms and female exams, with no family history of colon cancer. Social History - Employment: Works in [employer] and [employer] industry. - Family status: Mother of three children. - Exercise: Finds relief from headaches by walking. Review of Systems - Neurological: Reports chronic headaches, denies relief with ibuprofen or acetaminophen. - Musculoskeletal: Reports jaw pain, denies exacerbation with chewing. - Ophthalmologic: Reports past ocular migraines, denies current visual disturbances. - General: Denies nausea or vomiting. Physical Exam General: Cooperative and healthy appearing Nutritional Appearance: Well nourished Orientation/consciousness: Patient oriented x3 Limitations: No limitations Head: Normal to inspection General: Appearance normal, both eyes and all related structures Neck: Normal visual inspection Chest: Normal palpation of entire chest wall Respiratory: N ormal respiratory effort Neurology: Patient oriented x3, reports chronic headaches, pain in jaw and face, no relief from ibuprofen or Tylenol, no vision changes currently, history of ocular migraines, pain described as 5/10 today, previously 1010. Results Plan 1. Chronic Headaches - Plan to initiate muscle relaxant therapy at bedtime for one month to assess effectiveness. - Follow-up appointment scheduled to evaluate response to treatment. 2. Temporomandibular Joint Disorder - Orthodontic preparation and jaw surgery planned in [place], with initial workup scheduled next Thursday. 3. Ocular Migraines - Continue vitamin B2 and magnesium supplementation, which has reduced ocular symptoms. Discussion Notes I discussed with the patient the plan to start a muscle relaxant at bedtime to address her chronic headaches, with a follow-up appointment to assess its effectiveness. We also reviewed her upcoming orthodontic and surgical plans for her temporomandibular joint disorder. I advised continuing vitamin B2 and magnesium supplementation for her ocular migraines, which have shown improvement. We will conduct blood work to rule out other causes of her symptoms and consider further interventions based on her response to the current plan. Patient Instructions - Take the prescribed muscle relaxant at bedtime for one month. - Continue taking vitamin B2 and magnesium supplements daily. - Attend the scheduled follow-up appointment to discuss treatment progress. - Prepare for the orthodontic workup in [place] next Thursday. Orders: Orders Thyroid Stimulating Hormone Today G43.909 - Migraine, unspecified, not intractable, without status migrainosus Erythrocyte Sedimentation Rate Today G43.909 - Migraine, unspecified, not intractable, without status migrainosus Basic Metabolic Panel Today G43.909 - Migraine, unspecified, not intractable, without status migrainosus Lipid Panel Today G43.909 - Migraine, unspecified, not intractable, without status migrainosus Liver Panel Today G43.909 - Migraine, unspecified, not intractable, without status migrainosus UA and rflx microscopic Today G43.909 - Migraine, unspecified, not intractable, without status migrainosus Medications: New cyclobenzaprine 10 mg PO BEDTIME 30 tabs 0RF Discontinued gaufrwwucr-taeirweowjpmu-cibv 50-300-40 mg (Fioricet) Discontinued Reason: Patient no longer taking 1 cap PO Q6H PRN 20 caps 0RF headache sumatriptan succinate (Imitrex) do not exceed 2 doses per 24 hrs Discontinued Reason: Patient no longer taking 50 mg PO Q2H PRN 10 tabs 0RF migraine headache amoxicillin Discontinued Reason: Patient no longer taking 500 mg PO TID 30 tabs 0RF
[2025-02-20 10:52] VITALS: BP 122/70; PULSE 67; TEMP 36.9; O2SAT 99; BMI 25.6
== END 2025-02-20 11:20 | disposition home or self-care (01) ==
LOC: HO.HMCHD 10:22
PROVIDERS: PCP Internal Medicine; Visit Provider Internal Medicine
DX: G43.909 Migraine, unspecified, not intractable, without status migrainosus (principal)

== ENCOUNTER 2025-03-21 12:17 | Outpatient (REF) | payer BC, SELFPAY ==
--- OUTSIDE RECORDS SUMMARY | 2025-03-21 13:08 | XMS_ITS | Clinical Summary ---
Author Organization [facility] Address [address] [place] [address] Phone Care Team Providers [employer] Transactions Attorney Name Role Phone Rodri Sepulveda MD Primary Care Provider Sylvester Wolff DMD, MD Unavailable Jose Francisco Brasher DMD Unavailable Allergies No known active allergies Medications ciclopirox (LOPROX) 1 % shampoo 05/13/2021 Active cyclobenzaprine (FLEXERIL) 10 MG tablet 02/21/2025 Active Active Problems No known active problems Encounters Date Type Department Care Team Description 03/03/2025 9:50 AM EDT - 03/03/2025 11:59 PM EDT [place] [facility] [place] [address], [address], [address] [place] [address] Sylvester Wolff DMD, MD Discharge Disposition: Home or Self Care 03/03/2025 9:50 AM EDT - 03/03/2025 11:59 PM EDT [place] [facility] [place] [address], [address] [place] [address] Sylvester Wolff DMD, MD Discharge Disposition: Home or Self Care 03/03/2025 Orders Only [facility] [place] [address], [address] [place] [address] Villareal, Cece Malinda Disorder of jaw (Primary Dx) from Last 3 Months Immunizations Immunization Administration Dates Next Due Influenza Quadrivalent MDCK Preservative Free IM 05/04/2019 Influenza Quadrivalent Preservative Free IM 1104/2018,09/08/2013 Influenza Trivalent Preservative Free IM 017 Influenza Trivalent w/ Preservative IM ,06/06/2014 Rabies Fibroblast Culture 04/18/2021 Tdap 09/03/2018 Social History Tobacco Use Types Packs/Day Years Used Date Smoking Tobacco: Never Assessed Education Answer Date Recorded Are you interested in more education? Not on wander e 12/19/2022 Are you concerned about learning? Not on file 12/19/2022 No 12/19/2022 No 12/19/2022 Digital Access Answer Date Recorded No 01/16/2023 No 01/16/2023 Reliable internet access at home? Not on file 01/16/2023 Device with a working camera? Not on file Comments Unknown Sex and Gender Information Value Date Recorded Sex Assigned at Not on file Legal Sex Female 9:19 PM EDT Gender Identity Not on file Sexual Orientation Not on file Last Filed Vital Signs Vital Sign Reading Time Taken Comments Blood Pressure 110/75 06/09/2021 11:08 AM EDT Pulse 66 06/09/2021 11:08 AM EDT Temperature 36.9 C (98.4 F) 06/09/2021 11:08 AM EDT Respiratory Rate 16 06/09/2021 11:08 AM EDT Oxygen Saturation 99% 06/09/2021 11:08 AM EDT Inhaled Oxygen Concentration - - Weight 68 kg (150 lb) 08/25/2024 10:03 AM EST Height 162.6 cm (5' 4 ) 08/25/2024 10:03 AM EST Body Mass Index 25.75 08/25/2024 10:03 AM EST Plan of Treatment Upcoming Encounters Date Type Department Care Team (Late st Contact Info) Description 04/13/2025 1:30 PM EDT [place] [facility] [place] [address] [place] [address], [address] Floor, [address] [place] [id number] Sylvester Wolff DMD, MD [address] [place] [id number] [email or web address] Health Maintenance Due Date Last Done Comments DEPRESSION SCREENING 1994 SMOKING Hx and SMOKELESS TOBACCO SCREENING 1995 HEPATITIS C SCREENING 2000 HIV ONE-TIME SCREENING (18-6 5 YEARS) 2000 PAP SMEAR 2003 SCREENING FOR DIABETES 2017 MAMMOGRAM 2022 COVID-19 VACCINE ( - 2023-2 5 season) 2024 09/03/2021, 12/05/2020, 11/12/2020 Adult Td,Tdap Booster 09/03/2028 09/03/2018 HEPATITIS A VACCINES Aged Out No long er eligible based on patient's age to complete this topic HIB VACCINES Aged Out No longer eligi ble based on patient's age to complete this topic MENINGOCOCCAL VACCINES (ACWY) Aged Out No longer eligible based on patient's age to complete this topic MENINGOCOCCAL VACCINES (B) Aged Out N o longer eligible based on patient's age to complete this topic PNEUMOCOCCAL VACCINES (0-49 years) Aged Out No longer eligible b ased on patient's age to complete this topic Medical Devices Not on file Procedures Procedure Name Priority Date/Time Associated Diagnosis Comments POINT OF CARE DENTAL Routine 03/03/2025 9:50 AM EDT Disorder of jaw from Last 3 Months Results * Point of Care, Dental (03/03/2025 9:50 AM EDT) Narrative [facility] [place] - 03/03/2025 9:[address] dental scans were provided during this procedure. us Sylvester Wolff DMD, MD IMG POINT OF CARE EXAM S Final Result [facility] [place]ES from Last 3 Months Insurance [employer] [address] [place] [address] [place] [address] [place] [address] [address] [place] [address] PPO EPO [facility] PPO EPO [facility] PPO EPO [employer] Transactions Attorney Relationship Specialty Start Date End Date Rodri Sepulveda MD [address] [place] [address] [place] [address] PCP - General Internal Medicine 06/09/21 Sylvester Wolff DMD, MD [address] [place] [phone] [email or web address] Pediatric Medicine 02/29/24 Jose Francisco Brasher DMD [address] [place] [phone] [email or web address] 02/29/24 Additional Source Comments The information contained in this document represents components of the legal health record. It is not the complete legal health record.[facility]
[2025-03-21 13:32] LABS: Appearance Urine Clear; Glucose Urine UA Negative (Negative); PH 6.5 (5.0-9.0); Specific Gravity - Urine 1.010 (1.005-1.025); UMIC TRIGGER UA YES
== END 2025-03-21 12:18 | disposition home or self-care (01) ==
LOC: HO.10HDLNP 12:17
PROVIDERS: Visit Provider Internal Medicine
DX: G43.909 Migraine, unspecified, not intractable, without status migrainosus (principal)
CPT/HCPCS: 81001

== ENCOUNTER 2025-04-12 09:46 | Outpatient (AMB) | payer BC, SELFPAY ==
--- NOTE | 2025-04-12 09:47 | A.OFFPC_ITS ---
Vital Signs 04/12/25 09:52 Height 5 ft 5 in Weight 69.853 kg BMI 25.6 BP 108/68 Blood Pressure Location Lt brachial Position Sitting Respiration 16 Pulse 74 Pulse Source Pulse Oximeter Temp 97.8 F Temp Source Temporal Artery Scan Pulse Oximetry (%) 98 Oxygen Delivery Method Room Air Intake Visit Reasons: Headache f/u Tennis Director Required: No Accompanied by: Self / Same As Patient Allergies lactose (LACTOSE) Allergy (Unknown, Verified 04/12/25 09:48) GAS Medication List - Last Reconciled 04/12/25 by ELE Queen [magnesium PO] riboflavin (vitamin B2) 400 mg PO BID rimegepant (Nurtec ODT) 75 mg PO Q OTHER DAY PRN Tobacco use date assessed: 02/20/25 Dental Screening Dental Screen Date: 02/20/25 HPI HPI Comments History of Present Illness Details 44-year-old female with history of chron ic headaches presents to the office today to for evaluation. For about 7 years, she has been experiencing different types of headaches. She is a constant headache located over the maxillary and frontal sinus through her nose. 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 Distinct from this, she also experiences intermittent pulsing headaches on the left side of the head that she feels occur in the proximity of her menses. She reports she does have a history of ocular migraines but no longer experiences any vision issues associated with the pulsating headaches. She has followed with Neurology in the past and trialed multiple medications which she did not feel worked. She has been taking vitamin B2 as well as magnesium that she feels resolved with the ocular migraine and she does continue on these current therapies. More concerning is the numbness and tingling over her entire tongue more side on the left associated with these headaches. She was seen by my colleague previously who did prescribe Flexeril which worked as far as the TMJ area radiating into the head but these made her feel lethargic and they only lasted for about 7 hours. She is following now with [facility] [place] who feels that it is possible that the frontal and sinus headaches that she is experiencing may be related to the TMJ though this seems less likely. She will be getting braces to help with the jaw malalignment prior to having surgery next year ROS: General: No fevers, malaise, unintentional weight loss HEENT: No blurred vision, diplopia. No sore throat, nasal congestion, rhinorrhea, sinus pain, ear pain Cardiovascular: No chest pain, palpitations, or leg edema Respiratory: No shortness of breath, wheezing, cough GI: No abdominal pain, nausea, vomiting, diarrhea, constipation, melena, hematochezia : No dysuria, hematuria, increased urinary frequency, decreased urinary output MSK: No myalgia, back pain Neuro: see hpi Skin: No rashes or lesions EXAM: Constitutional - Awake and Alert, No apparent distress Eyes - PERRL Cardiovascular - S1S2, RRR, No edema Respiratory - Normal lung expansion, Normal respiratory effort, No respiratory distress, CTA bilaterally Extremities - no calf tenderness bilaterally, no swelling Skin - Warm/Dry Neurological - Alert & oriented x3. CN II_XII in tact Psychological - Appropriate affect [facility] Medical History (Updated 04/12/25 @ 10:11 by ELE Queen) Migraine headache deliv due to previous difficult deliv, deliv, curr hospitaliz Surgical History Previous section Family History (Updated 02/20/25 @ 10:56 by Aliza Ladd MA) Mother No problems noted. Father No problems noted. Social History Housing: House Patient Tobacco Use Status: Never used Tobacco e-Cigarette/Vaping Use: Never Used service: No Current occupational status: employed Cognitive needs: No Hearing needs: No Vision needs: Yes (rx glasses) Questionnaire Thrive Questionnaire Date Thrive assessed: 02/20/25 AUDIT C Alcohol Use Questionnaire (AUDIT-C) 1. How often do you have a drink containing alcohol?: Never Total Score: 0 CHINA-7 AMB Questionnaire CHINA-7 Date CHINA - 7 assessed: 02/20/25 Source: Developed by Drs. Taye Ghotra, Apoorva Tesfaye, Diego Hill and colleagues, with an educational ervin from [employer]. Physical exam (Primary Care) Vital Signs: Last Vital Signs Temp 97.8 F 04/12/25 09:52 Pulse 74 04/12/25 09:52 Resp 16 04/12/25 09:52 BP 108/68 04/12/25 09:52 Pulse Ox 98 04/12/25 09:52 Oxygen Delivery Method Room Air 04/12/25 09:52 BMI result Body Mass Index 25.6 Tobacco/Smoking Status: Tobacco use Status Tobacco use date assessed 02/20/25 04/12/25 09:54 Patient Tobacco Use Status Never used Tobacco 04/12/25 09:54 e-Cigarette/Vaping Use Never Used 04/12/25 09:54 Thrive Assessment: Date of Thrive Assessment Date Thrive assessed 02/20/25 04/12/25 09:54 Coding Level of Care Code Est Pt Level 4 (45772) Complex EM visit Add On G2211 Diagnoses Migraine headache G43.909 Sinus headache R51.9 Numbness of tongue R20.0 Assessment & Plan Assessment & Plan (1) Migraine headache: Code(s): G43.909 - Migraine, unspecified, not intractable, without status migrainosus Category: Medical Plan: Given chronicity and frequency, check MRI of the brain. Trial of Nurtec. Continue magnesium and riboflavin (2) Sinus headache: Code(s): R51.9 - Headache, unspecified Category: Medical Plan: It seems less likely that these headaches are radiating from the TM given how patient describes these and clinical history. Would likely benefit from at least an evaluation by ENT and is referred (3) Numbness of tongue: Code(s): R20.0 - Anesthesia of skin Category: Medical Plan: Associated with regular headaches. MRI of the brain ordered. Plan Follow up in the office in 6 months for annual physical exam Orders: Orders MR head/brain wo con 04/12/25 R20.0 - Anesthesia of skin, R51.9 - Headache, unspecified Referrals Ear/Nose/Throat Referral R51.9 - Headache, unspecified Medications: New rimegepant (Nurtec ODT) 75 mg PO Q OTHER DAY PRN 30 tabs 1RF migraine headache
[2025-04-12 09:52] VITALS: BP 108/68; PULSE 74; RESP 16; TEMP 36.6; O2SAT 98; BMI 25.6
--- OUTSIDE RECORDS SUMMARY | 2025-04-12 10:37 | XMS_ITS | Clinical Summary ---
Author Organization [facility] Address [address] [place] [address] Phone Care Team Providers Care Commercial Credit Head Name Role Phone Rodri Sepulveda MD Primary Care Provider Sylvester Wolff DMD, MD Unavailable Jose Francisco Brasher DMD Unavailable [phone] Allergies No known active allergies Medications ciclopirox (LOPROX) 1 % shampoo 05/13/2021 Active cyclobenzaprine (FLEXERIL) 10 MG tablet 02/21/2025 Active Active Problems No known active problems Encounters Date Type Department Care Team Description 03/03/2025 9:50 AM EDT - 03/03/2025 11:59 PM EDT Hospital [place] [facility] [place] [address], 2nd Floor, [address] [place] [address] Sylvester Wolff DMD, MD Discharge Disposition: Home or Self Care 03/03/2025 9:50 AM EDT - 03/03/2025 11:59 PM EDT Hospital En[place] [facility] [place] [address], [address]nd Floor, [address] [place] [address] Sylvester Wolff DMD, MD Discharge Disposition: Home or Self Care 03/03/2025 Orders Only [facility] [place] service technician [address], [address] Floor, [address] [place] [address] Cece Villareal Disorder of jaw (Primary Dx) from Last 3 Months Immunizations Immunization Administration Dates Next Due INFLUENZA, SPLIT VIRUS, TRIVALENT PF 05/08/2017 INFLUENZA, SPLIT VIRUS, TRIVALENT W/ PRESERVATIV E IM 05/08/2021,06/06/2014 Influenza Quadrivalent MDCK Preservative Free IM 05/04/2019 Influenza Quadrivalent Preservative Free IM 11/04/2018,09/08/2013 Rabies Fibroblast Culture 04/18/2021 Tdap 09/03/2018 Social [...] Info) Description 04/13/2025 1:30 PM EDT Appointment [facility] [place] service technician [address] [place] [address], [address] Floor, [address] [place] [address] Sylvester Wolff DMD, MD [address] [place], [place] [id number] [email or web address] Health Maintenance Due Date Last Done Comments DEPRESSION SCREENING 1994 SMOKING Hx and SMOKELESS TOBACCO SCREENING 1995 HEPATITIS C SCREENING 2000 HIV ONE-TIME SCREENING (18-6 5 YEARS) 2000 PAP SMEAR 2003 SCREENING FOR DIABETES 2017 MAMMOGRAM 2022 COVID-19 VACCINE (4 - 2023-2 5 season) 2024 09/03/2021, 12/05/2020, [...] Care, Dental (03/03/2025 9:50 AM EDT) Narrative [facility] [place] - 03/03/2025 9:[address] dental scans were provided during this procedure. us Sylvester Wolff DMD, MD IMG POINT OF CARE EXAM S Final Result [facility] from Last 3 Months Insurance [facility] [place] [address] [place] [address] PPO EPO [facility] P[facility]PO [facility] PPO [facility]PO [facility] PPO EPO [facility] P[facility] EPO Care Teams Commercial Credit Head Relationship Specialty Start Date End Date Rodri Sepulveda MD [address] [place] [address] [place] [address] PCP - General Internal Medicine 06/09/21 Sylvester Wolff DMD, MD [address] [place] [phone] Pediatric Medicine 02/29/24 Jose Francisco Brasher DMD [address] [place] [phone] [email or web address] 02/29/24 Additional Source Comments The information contained in this document represents components of the legal health record. It is not the complete legal health record.[facility]
== END 2025-04-12 10:24 | disposition home or self-care (01) ==
LOC: HO.HMCHD 09:47
PROVIDERS: PCP Physician Assistant; Visit Provider Physician Assistant
DX: G43.909 Migraine, unspecified, not intractable, without status migrainosus (principal); R51.9 Headache, unspecified; R20.0 Anesthesia of skin

== ENCOUNTER 2025-04-29 19:23 | Outpatient (REF) | payer BC, SELFPAY ==
--- NOTE | ~2025-04-29 | MR_ITS ---
EXAMINATION: MR BRAIN WITHOUT IV CONTRAST HISTORY: R51.9 - Headache, unspecified TECHNIQUE: Sagittal T1, and axial T1, FLAIR, T2, gradient echo, and diffusion weighted MR images of the brain were obtained. COMPARISON: There are no prior studies available for comparison. FINDINGS: The pituitary is normal in size. The cerebellar tonsils are normally located. A single small nonspecific subcortical white matter hyperintense focus is noted in the right frontal lobe. The brain parenchyma is otherwise unremarkable, demonstrating normal berry/white differentiation. There is no mass effect or midline shift. The ventricular system is normal in size and configuration. No intra or extra-axial fluid collections are identified. There are no foci of restricted diffusion. Normal vascular flow voids are noted in the basilar and carotid arteries. The visualized paranasal sinuses are clear. MR/MR head/brain wo con IMPRESSION: Single small nonspecific white matter hyperintensities in the right frontal lobe. Otherwise unremarkable MRI of the brain without contrast. Electronically signed by: Taye [place] MD 05/01/2025 07:49 AM EDT
--- OUTSIDE RECORDS SUMMARY | 2025-04-29 19:27 | XMS_ITS | Clinical Summary ---
Author Organization [facility] Address [address] [place] [address] Phone Care Team Providers Care Sport Intern Name Role Phone Rodri Sepulvdea MD Primary Care Provider Sylvester Wolff DMD, MD Unavailable [phone] Jose Francisco Brasher DMD Unavailable Allergies No known active allergies Medications ciclopirox (LOPROX) 1 % shampoo 05/13/2021 Active cyclobenzaprine (FLEXERIL) 10 MG tablet 02/21/2025 Active Active Problems No known active problems Encounters Date Type Department Care Team Description 04/13/2025 1:09 PM EDT - 04/13/2025 11:59 PM EDT Hospital Encounter [facility] 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 [address], [address]nd [address], [address] [place] [address] Sylvester Wolff DMD, MD Discharge Disposition: Home or Self Care 03/03/2025 9:50 AM EDT - 03/03/2025 11:59 PM EDT Hospital Encounter [facility] 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 [address], [address], [address] [place] [address] Sylvester Wolff DMD, MD Discharge Disposition: Home or Self Care 03/03/2025 9:50 AM EDT - 03/03/2025 11:59 PM EDT Hospital Encounter [facility] 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 [address], [address], [address] [place] [address] Sylvester Wolff DMD, MD Discharge Disposition: Home or Self Care 03/03/2025 Orders Only [facility] 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 [address], [address], [address] [place] [address] Cece Villareal Disorder of jaw (Primary Dx) from Last 3 Months Immunizations Immunization Administration Dates Next Due INFLUENZA, SPLIT VIRUS, TRIVALENT PF 05/08/2017 INFLUENZA, SPLIT VIRUS, TRIVALENT W/ PRESERVATIV E IM 05/08/2021,06/06/2014 Influenza Quadrivalent MDCK Preservative Free IM 05/04/2019 Influenza Quadrivalent Preservative Free IM 04/2018,09/08/2013 Rabies Fibroblast Culture 04/18/2021 Tdap 09/03/2018 Social [...] Care Team (Late st Contact Info) Description 10/20/2025 10:30 AM EST Appointment [facility] 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 [address] [place] [address], [address]nd Floor, [address] [place] [address] Sylvester Wolff DMD, MD [address] [place] [address] [email or web address] Health Maintenance Due Date Last Done Comments DEPRESSION SCREENING 1994 SMOKING Hx and SMOKELESS TOBACCO SCREENING 1995 HEPATITIS C SCREENING 2000 HIV ONE-TIME SCREENING (18-65 YEARS) 2000 PAP SMEAR 2003 SCREENING FOR DIABETES 2017 MAMMOGRAM 2022 INFLUENZA VACCINE (#1) 2025 , 05/08/2021, 05/04/2019, Additional history exists COVID-19 VACCINE ( season) 2025 09/03/2021, 12/05/2020, 11/12/2020 Adult Td,Tdap Booster 09/03/2028 [...] (0-49 years) Aged Out No longer eligible based on patient's age to complete this topic Medical Devices Not on file Procedures Procedure Name Priority Date/Time Associated Diagnosis Comments POINT OF CARE DENTAL Routine 03/03/2025 9:50 AM EDT Disorder of jaw from Last 3 Months Results * Point of Care, Dental (03/03/2025 9:50 AM EDT) Narrative [facility] [place]G INTERFACES - 03/03/2025 9:[address] dental scans were provided during this procedure. Sylvester Wolff DMD, MD IMG POINT OF CARE EXAM S Final Result [facility] [place]G INTERFACES from Last [address] [place] [address] [place] [address] [place] [address] [place] [address] [place] [address] PPO EPO [facility] PPO EPO [facility] PPO [facility]PO [facility] PPO EPO [address] [place] Care Teams Sport Intern Relationship Specialty Start Date End Date Rodri Sepulveda MD [address] [place] [address] [place] PCP - General Internal Medicine 06/09/21 Sylvester Wolff DMD, MD [address] [place] [id number] [email or web address] Pediatric Medicine 02/29/24 Jose Francsico Brasher DMD [address] [place] [phone] [email or web address] 02/29/24 Additional Source Comments The information contained in this document represents components of the legal health record. It is not the complete legal health record.[facility]
== END 2025-04-29 19:24 | disposition home or self-care (01) ==
LOC: HO.MRI 19:23
PROVIDERS: Visit Provider Physician Assistant
DX: R51.9 Headache, unspecified (principal); R20.0 Anesthesia of skin
CPT/HCPCS: 70551

== ENCOUNTER → 2025-04-29 19:43 | Outpatient (BNV) | payer BC, SELFPAY | PROVIDERS: Visit Provider Radiology Diagnostic Radiology | DX: R90.82 White matter disease, unspecified (principal) | CPT/HCPCS: 70551 ==

== ENCOUNTER → 2025-05-15 15:47 | Outpatient (BNV) | payer BC, SELFPAY | PROVIDERS: Visit Provider Radiology Diagnostic Radiology | DX: G93.9 Disorder of brain, unspecified (principal) | CPT/HCPCS: 70553 ==

== ENCOUNTER 2025-05-15 15:53 | Outpatient (REF) | payer BC, SELFPAY ==
--- NOTE | ~2025-05-15 | MR_ITS ---
EXAMINATION: MR BRAIN WITHOUT AND WITH CONTRAST CLINICAL INFORMATION: Disorder of the brain, unspecified. G93.9. COMPARISON: April 29, 2025 TECHNIQUE: Axial T1 pre and postcontrast sequences. Sagittal FLAIR sequences. Coronal T1 postcontrast sequence. Total intravenous administration of 6.5 mL gadolinium based without reported immediate complications. FINDINGS: No abnormal enhancement within the intra-axial or the extra-axial compartment of the cranium. There are a few, less than 3 mm, nonspecific, nonenhancing hyperintense FLAIR signal abnormality foci white matter of the right frontal lobe. MR/MR head/brain wo/w con IMPRESSION: Right frontal T2 FLAIR signal demonstrated no enhancement. No abnormal enhancement. Electronically signed by: Javy Whitfield MD 05/16/2025 07:11 AM EDT
== END 2025-05-15 15:54 | disposition home or self-care (01) ==
LOC: HO.MRI 15:53
PROVIDERS: Visit Provider Physician Assistant
DX: G93.9 Disorder of brain, unspecified (principal); R20.0 Anesthesia of skin; R20.2 Paresthesia of skin; R51.9 Headache, unspecified
CPT/HCPCS: 70553; A9585